=== PATIENT | female | born 1955 | race Caucasian/White ===

== ENCOUNTER → 2020-06-05 | Outpatient (CLI) | payer MEDICARE, OTHER ==
[~2020-06-05] MED LIST: DEXL60CA3 PO; FLUO10 PO; Flomax0.4 MG PO; HYDACE5 PO; OMEP20ER PO; PROM25 PO; Percocet 5-3251 EACH PO; Prilosec40 MG PO; Pyridium200 MG PO; SUCR1SU PO; Zofran Odt8 MG SL
== END | disposition home or self-care (01) ==
LOC: PLD 10:41 → LAB SHORT 10:41
DX: D48.5 Neoplasm of uncertain behavior of skin (principal)
CPT/HCPCS: 88305

== ENCOUNTER → 2021-07-10 | Outpatient (CLI) | payer MEDICARE, OTHER | END | disposition home or self-care (01) | LOC: LAB SHORT 10:59 → LAB 10:59 | DX: D48.5 Neoplasm of uncertain behavior of skin (principal) | CPT/HCPCS: 88305 ==